=== PATIENT | female | born 1945 | race Caucasian/White ===

== ENCOUNTER 2023-06-20 09:12 | Observation (INO) | payer MEDICARE, BC, OTHER ==
--- NOTE | 2023-06-20 10:09 | ED ---
General Adult HPI - General Chief complaint: Recheck/Abnormal Lab/Rx Stated complaint: Abd Pain Time Seen by Provider: 06/20/23 09:25 Source: patient, RN notes reviewed, old records reviewed Mode of arrival: ambulatory Limitations: no limitations - History of Present Illness Initial comments: This is a 78-year-old female who presents emergency Department stating that she came to the emergency department at [place] for nausea vomiting diarrhea and a rash in her groin. Patient while at [place] was seen by the emergency room physician they did a CAT scan and they noticed that the abdominal aorta was either occluded or near occluded however there was some reconstitution below the occlusion and according to the ER doc in the patient had good cap refill and warm legs. Patient did state that she was having some pain in her legs occasionally if she was walking around a lot and it seems to be getting worse slowly. According to your doctor lactic acid was normal there however when the patient arrived and noted blood work that the lactic acid was elevated at 4.4. Patient currently states she feels considerably better is not complaining of any leg pain patient denies any abdominal pain but she states that her groin or the rash is is still quite sore. - Related Data Allergies Allergy/AdvReac Type Severity Reaction Status Date / Time No Known Allergies Allergy Verified 06/20/23 09:24 Review of Systems ROS Statement: Those systems with pertinent positive or pertinent negative responses have been documented in the HPI. ROS Other: All systems not noted in ROS Statement are negative. Past Medical History Past Medical History: Coronary Artery Disease (CAD), Hyperlipidemia, Hypertension Additional Past Medical History / Comment(s): Colon Polyps, Hypomagnesemia, Uterine CA, PVD History of Any Multi-Drug Resistant Organisms: None Reported Past Surgical History: No Surgical Hx Reported Past Psychological History: Anxiety Smoking Status: Never smoker Past Alcohol Use History: None Reported Past Drug Use History: None Reported General Exam - General Exam Comments Initial Comments: GENERAL: Patient is well-developed and well-nourished. Patient is nontoxic and well- hydrated and is in mild distress. ENT: Neck is soft and supple. No significant lymphadenopathy is noted. Oropharynx is clear. Moist mucous membranes. Neck has full range of motion without eliciting any pain. EYES: The sclera were anicteric and conjunctiva were pink and moist. Extraocular movements were intact and pupils were equal round and reactive to light. E yelids were unremarkable. PULMONARY: Unlabored respirations. Good breath sounds bilaterally. No audible rales rhonchi or wheezing was noted. CARDIOVASCULAR: There is a regular rate and rhythm without any murmurs gallops or rubs. ABDOMEN: Soft and nontender with normal bowel sounds. Patient has intertrigo more so on the left than the right and there is an open wound does not appear to be grossly infected. SKIN: Skin is clear with no lesions or rashes and otherwise unremarkable. NEUROLOGIC: Patient is alert and oriented x3. Cranial nerves II through XII are grossly intact. Motor and sensory are also intact. Normal speech, volume and content. Symmetrical smile. MUSCULOSKELETAL: Normal extremities with adequate strength and full range of motion. No lower extremity swelling or edema. No calf tenderness. I cannot feel any DP pulses however patient has good cap refill in both feet are warm LYMPHATICS: No significant lymphadenopathy is noted PSYCHIATRIC: Normal psychiatric evaluation. Limitations: no limitations Course Vital Signs 06/20/23 09:19 Temperature 99.4 F Pulse Rate 81 Respiratory 20 Rate Blood Pressure 130/58 O2 Sat by Pulse 98 Oximetry Medical Decision Making - Medical Decision Making EKG is interpreted by myself. EKG shows sinus rhythm at 75 bpm MO interval 243 QRS 99 QT intervals 46 QTC is 435 per patient's EKG shows no ST segment elevation or depression. Was pt. sent in by a medical professional or institution (, [facility], PROFESSIONAL ARCHITECT, urgent care, hospital, or usp...) When possible be specific @ -Patient was sent to us from [facility] Did you speak to anyone other than the patient for history (EMS, parent, family, police, friend...)? What history was obtained from this source @ -I spoke with the ER doctor at [facility] and he gave me the history on this patient Did you review nursing and triage notes (agree or disagree)? Why? @ -I reviewed and agree with nursing and triage notes Were old charts reviewed (outside hosp., previous admission, EMS record, old EKG, old radiological studies, urgent care reports/EKG's, usp records)? Report findings @ -I reviewed prior Charts prior and lab work and prior radiological studies in this patient Differential Diagnosis (chest pain, altered mental status, abdominal pain women, abdominal pain men, vaginal bleeding, weakness, fever, dyspnea, syncope, headache, dizziness, GI bleed, back pain, seizure, CVA, palpatations, mental health, musculoskeletal)? @ -Differential Abdominal Pain Women: Appendicitis, Cholecystitis, diverticulosis, ischemic bowel, pancreatitis, hepatitis, UTI, gastroenteritis, AAA, incarcerated hernia, bowel obstruction, constipation, inflammatory bowel, hepatitis, peptic ulcer disease, splenic infarction, perforated viscus, vulvitis, ovarian torsion, PID, kidney stone, placenta abruption, this is not meant to be an all-inclusive list EKG interpreted by me (3pts min.). @ -As above X-rays interpreted by me (1pt min.). @ -None done CT interpreted by me (1pt min.). @ -None done U/S interpreted by me (1pt. min.). @ -None done What testing was considered but not performed or refused? (CT, X-rays, U/S, labs)? Why? @ -None What meds were considered but not given or refused? Why? @ -None Did you discuss the management of the patient with other professionals (professionals i.e. , PA, PROFESSIONAL ARCHITECT, lab, RT, psych nurse, social science research assistant, book packer, teacher, cavalry officer, grievance manager)? Give summary @ -I spoke with from [facility] and he agreed with the patient admitted the patient wrote admitting orders Was smoking cessation discussed for >3mins.? @ -No Was critical care preformed (if so, how long)? @ -No Were there social determinants of health that impacted care today? How? (Homelessness, low income, unemployed, alcoholism, drug addiction, transportation, low edu. Level, literacy, decrease access to med. care, halfway, rehab)? @ -No Was there de-escalation of care discussed even if they declined (Discuss DNR or withdrawal of care, Hospice)? DNR status @ -No What co-morbidities impacted this encounter? (DM, HTN, Smoking, COPD, CAD, Cancer, CVA, ARF, Chemo, Hep., AIDS, mental health diagnosis, sleep apnea, morbid obesity)? @ -None Was patient admitted / discharged? Hospital course, mention meds given and route, prescriptions, significant lab abnormalities, going to OR and other pertinent info. @ -Patient was given some IV fluids and a repeat lactic acid was done I spoke with some physicians they will be admitting the patient. I consulted asked the surgery. Undiagnosed new problem with uncertain prognosis? @ -No Drug Therapy requiring intensive monitoring for toxicity (Heparin, Nitro, Insulin, Cardizem)? @ -No Were any procedures done? @ -No Diagnosis/symptom? @ -Abdominal aortic occlusion Acute, or Chronic, or Acute on Chronic? @ -Chronic Uncomplicated (without systemic symptoms) or Complicated (systemic symptoms)? @ -Complicated Side effects of treatment? @ -No Exacerbation, Progression, or Severe Exacerbation? @ -No Poses a threat to life or bodily function? How? (Chest pain, [place], [place], pneumonia, PE, COPD, DKA, ARF, appy, cholecystitis, CVA, Diverticulitis, Homicidal, Suicidal, threat to staff... and all critical care pts) @ -Yes this could lead to poor perfusion and end organ dysfunction Diagnosis/symptom? @ -Intertrigo Acute, or Chronic, or Acute on Chronic? @ -Acute Uncomplicated (without systemic symptoms) or Complicated (systemic symptoms)? @ -Complicated Side effects of treatment? @ -none Exacerbation, Progression, or Severe Exacerbation] @ -no Poses a threat to life or bodily function? @ -no Diagnosis/symptom? @ -Gastroenteritis Acute, or Chronic, or Acute on Chronic? @ -Acute Uncomplicated (without systemic symptoms) or Complicated (systemic symptoms)? @ -Complicated Side effects of treatment? @ -none Exacerbation, Progression, or Severe Exacerbation] @ -no Poses a threat to life or bodily function? @ -no Disposition Clinical Impression: Aortic occlusion, Gastroenteritis, Intertrigo Disposition: ADMITTED IP TO THIS HOSP Referrals: Jonah Marquez MD [Primary Care Provider] - 1-2 days Time of Disposition: 10:11
[2023-06-20] MEDS ORDERED: SODIUM CHLORIDE 0.9% 1,000 ML IV ONE (10:12)
--- NOTE | 2023-06-20 16:32 | P.GSCN ---
History of Present Illness Consult date: 06/20/23 Reason for Consult: Aortic occlusion History of present illness: 78-year-old female with history of peripheral arterial disease, patient states she previously had some intervention years ago by a vascular surgeon [place] but has not been seen since that time. She originally presented to the emergency department secondary to nausea and vomiting as well as diarrhea. During her workup at [facility] she had a computed tomography scan which demonstrated abdominal aortic occlusion with reconstitution and collateralization to the femoral arteries. She was then transferred to [facility] for continued care. She states she is having some issues with ambulation and states unable to walk farther than 50 feet without any significant pain in her legs. He is also started to experience pain at night as well in her feet. She denies any fevers, chills, chest pain or shortness of breath. Review of Systems All systems: negative (What is mentioned in the HPI or past medical history) Past Medical History Past Medical History: Coronary Artery Disease (CAD), Hyperlipidemia, Hypertension Additional Past Medical History / Comment(s): Colon Polyps, Hypomagnesemia, Uterine CA, PVD History of Any Multi-Drug Resistant Organisms: None Reported Past Surgical History: No Surgical Hx Reported Past Psychological History: Anxiety Smoking Status: Never smoker Past Alcohol Use History: None Reported Past Drug Use History: None Reported Medications and Allergies Home Medications Medication Instructions Recorded Confirmed Type Acetaminophen [Tylenol] 650 mg PO Q4H PRN 06/20/23 06/20/23 History Atorvastatin [Lipitor] 80 mg PO DAILY 06/20/23 06/20/23 History Clotrimazole Cream [Lotrimin Cream] 1 applic TOPICAL BID 06/20/23 06/20/23 History Fluconazole [Diflucan] See Taper PO DAILY 06/20/23 06/20/23 History HYDROcodone/APAP 7.5-325MG [[place] 1 tab PO Q8H PRN 06/20/23 06/20/23 History 7.5-325] Metoprolol Succinate (ER) [Toprol 50 mg PO BID 06/20/23 06/20/23 History Xl] Sulfamethox-Tmp 800-160Mg [Bactrim 1 tab PO BID 06/20/23 06/20/23 History DS 800-160 mg] amLODIPine [Norvasc] 10 mg PO DAILY 06/20/23 06/20/23 History hydroCHLOROthiazide 12.5 mg PO DAILY 06/20/23 06/20/23 History Allergies Allergy/AdvReac Type Severity Reaction Status Date / Time No Known Allergies Allergy Verified 06/20/23 13:17 Surgical - Exam Vital Signs Temp Pulse Resp BP Pulse Ox 99.4 F 81 20 130/58 98 06/20/23 09:19 06/20/23 09:19 06/20/23 09:19 06/20/23 09:19 06/20/23 09:19 Patient Seen Date: 06/20/23 Patient Seen Time: 16:00 - General well developed, moderate pain, chronically ill, obese - Eyes PERRL, normal ocular movement - ENT normal pinna, normal nares - Neck no masses, no bruits - Respiratory normal expansion, normal respiratory effort - Cardiovascular Rhythm: regular - Abdomen Abdomen: soft, non tender Hernia: none - Integumentary Multiple abscesses/pustules noted in the left groin and lower abdomen with purulent drainage noted. Positive tenderness to palpation. Surrounding erythema noted. - Psychiatric oriented to time, oriented to person, oriented to place, speech is normal Nonpalpable femoral, popliteal, PT or DP pulses bilaterally Feet are warm. Good capillary refill. 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 She states she has been dealing with this pain and discomfort for several years as well as had a previous procedure so years ago for revascularization. We will obtain lower extremity arterial Doppler with ABIs to determine severity of her blood flow. We will also instruct a distally made from [facility] in order to visualize the CTA. Thank you for the consultation.
[2023-06-20] MEDS ORDERED: ONDANSETRON 4 MG/2 ML VIAL IVP PRN (16:38)
--- NOTE | 2023-06-20 16:43 | P.HPIM ---
History of Present Illness H&P Date: 06/20/23 Patient is a 78-year-old female with history of hypertension, dyslipidemia presenting with nausea and vomiting. Her symptoms started yesterday, she had multiple bouts of emesis, nonbilious, nonbloody, also multiple bouts of diarrhea. She denies any sick contacts, fevers, chills, travel history. She denies any significant chest pain or shortness of breath. She has been having intertrigo for about 2 weeks, and presented to her PCP, and was prescribed oral fluconazole, oral Bactrim as well as antifungal cream. She claims that her rash is slightly improved. He still has significant burning in that area. She currently lives with her son, ambulates with a walker. She has a history of multiple back surgeries with multiple vertebral fractures, and has bilateral lower extremity radiculopathy. Denies any smoking, alcohol use, or illicit drug use. She is a former smoker. She initially presented at outside hospital. At outside hospital, her white count was 10.3, bicarb 14, creatinine 0.8, lactate 4.4. CT abdomen and pelvis showed occlusion or near occlusion of infra renal abdominal aorta with distal reconstitution, as well as signs of colitis. In our ED, temperature was 99.4, pulse 81, respiratory rate 20, blood pressure 130/58, saturating at 98% on 2 L. Lactic acid 1. EKG independently interpreted normal sinus rhythm. Patient admitted for further workup and vascular surgery consult. Pertinent positives and negatives as discussed in HPI, a complete review of systems was performed and all other systems are negative. Patient seen and examined at bedside. Vital signs reviewed General: nontoxic, no distress, appears at stated age, frail appearing Derm: warm, dry, abdominal and inguinal intertrigo with stage II ulcerations with slight purulent discharge Head: atraumatic, normocephalic, symmetric Eyes: EOMI, no lid lag, anicteric sclera, pupils equal round reactive to light ENT: Nose and ears atraumatic Neck: No thyromegaly, supple Mouth: no lip lesion, mucus membranes moist Cardiovascular: S1S2 reg, no murmur, no edema Lungs: clear to auscultation bilateral, no rhonchi, no rales, no wheeze, no accessory muscle use Abdominal: soft, nontender to palpation, no guarding, no appreciable organomegaly Ext: no gross muscle atrophy, muscle strength muscle strength 5 out of 5 in all 4 extremities, no contractures Neuro: CN II-XII grossly intact Psych: Alert, oriented, appropriate affect Assessment/Plan: Active: Aortic Conclusion, likely chronic -Vascular surgery consulted -Based on CT, patient has distal reconstitution -No need for anticoagulation at the moment -Start patient on aspirin 81 mg -Continue atorvastatin 80 mg Colitis Gastroenteritis, likely viral -Supportive care -Lactate has improved -Repeat CBC and BMP tomorrow -Zofran 4 mg IV every 6 hours as needed for nausea Intertrigo Cellulitis, likely bacterial -Started on IV cefazolin 2 g every 8 hours -Started on nystatin powder -Wound care consult Hypertension - amlodipine 10 mg, metoprolol 50 mg twice a day Dyslipidemia - atorvastatin 80 mg daily Resolved: Lactic acidosis Chronic: The patient is admitted with an anticipated less than 2 midnight stay as observation status for evaluation of abdominal pain. Surrogate decision-maker: Daughter CODE STATUS: Full code DVT prophylaxis: Lovenox Anticipated discharge date: Pending clinical course Anticipated discharge place: Pending clinical course A total of 55 minutes was spent on the care of this complex patient more than 50% of the time was spent in counseling and care coordination. Past Medical History Past Medical History: Coronary Artery Disease (CAD), Hyperlipidemia, Hypertension Additional Past Medical History / Comment(s): Colon Polyps, Hypomagnesemia, Uterine CA, PVD History of Any Multi-Drug Resistant Organisms: None Reported Past Surgical History: No Surgical Hx Reported Past Psychological History: Anxiety Smoking Status: Never smoker Past Alcohol Use History: None Reported Past Drug Use History: None Reported Medications and Allergies Home Medications Medication Instructions Recorded Confirmed Type Acetaminophen [Tylenol] 650 mg PO Q4H PRN 06/20/23 06/20/23 History Atorvastatin [Lipitor] 80 mg PO DAILY 06/20/23 06/20/23 History Clotrimazole Cream [Lotrimin Cream] 1 applic TOPICAL BID 06/20/23 06/20/23 History Fluconazole [Diflucan] See Taper PO DAILY 06/20/23 06/20/23 History HYDROcodone/APAP 7.5-325MG [[place] 1 tab PO Q8H PRN 06/20/23 06/20/23 History 7.5-325] Metoprolol Succinate (ER) [Toprol 50 mg PO BID 06/20/23 06/20/23 History Xl] Sulfamethox-Tmp 800-160Mg [Bactrim 1 tab PO BID 06/20/23 06/20/23 History DS 800-160 mg] amLODIPine [Norvasc] 10 mg PO DAILY 06/20/23 06/20/23 History hydroCHLOROthiazide 12.5 mg PO DAILY 06/20/23 06/20/23 History Allergies Allergy/AdvReac Type Severity Reaction Status Date / Time No Known Allergies Allergy Verified 06/20/23 13:17 Physical Exam Vitals: Vital Signs Temp Pulse Resp BP Pulse Ox 06/20/23 09:19 99.4 F 81 20 130/58 98 Intake and Output 06/20/23 06/20/23 06/20/23 06:59 14:59 22:59 Other: Weight 63.049 kg
[2023-06-20] MEDS: NYSTATIN 100,000 UNIT/GM POWD 15 GM TOPICAL SCH ×2 (18:59→23:33)
[2023-06-20] MEDS: METOPROLOL SUCCINATE (ER) 50 MG TAB.ER.24H PO SCH (20:29)
[2023-06-21] MEDS: HYDROcodone/APAP 7.5-325MG 1 EACH TAB PO PRN ×4 (00:54→23:40)
[2023-06-21] MEDS: NYSTATIN 100,000 UNIT/GM POWD 15 GM TOPICAL SCH ×3 (07:49→21:34)
[2023-06-21 08:12] LABS: Basophils % (A) 1 %; Eosinophils # (A) 0.2 k/uL (0-0.7); Eosinophils % (A) 3 %; HCT 38.2 % (34.0-46.0); HGB 12.9 gm/dL (11.4-16.0); Lymphocytes # (A) 1.9 k/uL (1.0-4.8); Lymphocytes % (A) 30 %; MCH 29.7 pg (25.0-35.0); MCHC 33.7 g/dL (31.0-37.0); MCV 88.1 fL (80.0-100.0); Mean Platelet Volume 8.7; Monocytes # (A) 0.5 k/uL (0-1.0); Monocytes % (A) 8 %; Neutrophils # (A) 3.5 k/uL (1.3-7.7); Neutrophils % (A) 56 %; Platelet Count 267 k/uL (150-450); RBC 4.33 m/uL (3.80-5.40); RDW 15.7 % (11.5-15.5); WBC 6.3 k/uL (3.8-10.6)
[2023-06-21 08:22] LABS: African American GFR (CKD) >90 (>60 ml/min/1.73 sqM); Anion Gap 11 mmol/L; Blood Urea Nitrogen 9 mg/dL (7-17); Calcium 9.1 mg/dL (8.4-10.2); Carbon Dioxide 21 mmol/L (22-30); Chloride 109 mmol/L (98-107); Glucose 85 mg/dL (74-99); Non-African American GFR(CKD) 88 (>60 ml/min/1.73 sqM); Potassium 3.6 mmol/L (3.5-5.1); Sodium 141 mmol/L (137-145)
[2023-06-21] MEDS: hydroCHLOROthiazide 12.5 MG CAP PO SCH ×2 (08:30→08:31)
[2023-06-21] MEDS: ATORVASTATIN 80 MG TAB PO SCH (08:31)
[2023-06-21] MEDS: METOPROLOL SUCCINATE (ER) 50 MG TAB.ER.24H PO SCH ×2 (08:31→21:34)
[2023-06-21] MEDS: ASPIRIN 81 MG PO SCH (08:31)
[2023-06-21] MEDS: amLODIPine 10 MG TAB PO SCH (08:31)
[2023-06-21] MEDS: ENOXAPARIN 40 MG/0.4 ML SYRINGE SQ SCH (08:31)
[2023-06-21] MEDS: NYSTATIN 100,000UNIT/GM CREAM 30 GM TUBE TOPICAL SCH ×3 (08:31→21:34)
--- NOTE | 2023-06-21 13:38 | P.PN ---
Subjective Progress Note Date: 06/21/23 Hospital Course: 78-year-old female with history of hypertension, dyslipidemia presenting with nausea and vomiting. At outside hospital, her white count was 10.3, bicarb 14, creatinine 0.8, lactate 4.4. CT abdomen and pelvis showed occlusion or near occlusion of infrarenal abdominal aorta with distal reconstitution, as well as signs of colitis. In our ED, temperature was 99.4, pulse 81, respiratory rate 20, blood pressure 130/58, saturating at 98% on 2 L. Lactic acid 1. EKG inde pendently interpreted normal sinus rhythm. Patient admitted for further workup and vascular surgery consult. Patient being treated for cellulitis and intertrigo. Vascular surgery recommending treatment of cellulitis prior to any further interventions. Subjective: Patient seen and examined at bedside. No acute events overnight. Abdominal rash is improving. No bowel movements or nausea or vomiting. Pertinent positives and negatives as discussed above, a complete review of systems was performed and all other systems are negative. Vitals Signs Reviewed. General: nontoxic, no distress, appears at stated age, frail appearing Derm: warm, dry, abdominal and inguinal intertrigo with stage II ulcerations with slight purulent discharge Head: atraumatic, normocephalic, symmetric Eyes: EOMI, no lid lag, anicteric sclera, pupils equal round reactive to light ENT: Nose and ears atraumatic Neck: No thyromegaly, supple Mouth: no lip lesion, mucus membranes moist Cardiovascular: S1S2 reg, no murmur, no edema Lungs: clear to auscultation bilateral, no rhonchi, no rales, no wheeze, no acc essory muscle use Abdominal: soft, nontender to palpation, no guarding, no appreciable organomegaly Ext: no gross muscle atrophy, muscle strength muscle strength 5 out of 5 in all 4 extremities, no contractures Neuro: CN II-XII grossly intact Psych: Alert, oriented, appropriate affect Data Reviewed Today: Pertinent Labs: Hemoglobin 12.9, WBC 6.3, bicarb 21, creatinine 0.6 Imaging: No new imaging Assessment and Plan: Active: Intertrigo Cellulitis, likely bacterial -Continue IV cefazolin 2 g every 8 hours -Continue nystatin powder -Wound care consult Aortic occlusion, likely chronic -Vascular surgery no immediate surgical intervention -Based on CT, patient has distal reconstitution -On aspirin 81 mg -Continue atorvastatin 80 mg Colitis, resolving Gastroenteritis, likely viral, resolved -Zofran 4 mg IV every 6 hours as needed for nausea Hypertension - amlodipine 10 mg, metoprolol 50 mg twice a day Dyslipidemia - atorvastatin 80 mg daily Resolved: Lactic acidosis Chronic: DVT ppx: Lovenox Code status: Full code Anticipated discharge place: Home Anticipated discharge time: Likely tomorrow Objective - Vital Signs Vital signs: Vital Signs Temp 97.6 F 06/21/23 08:18 Pulse 58 L 06/21/23 11:15 Resp 16 06/21/23 11:15 BP 168/68 06/21/23 11:15 Pulse Ox 96 06/21/23 11:15 FiO2 Intake & Output 06/20/23 06/21/23 06/21/23 18:59 06:59 18:59 Intake Total 290 Balance 290 Weight 63.049 kg 63.049 kg Intake: Intake, IV Titration 50 Amount ceFAZolin 2 gm In Sodium 50 Chloride 0.9% 50 ml @ 100 mls/hr IVPB Q8HR [facility] Rx# :[id number] Oral 240 Other: Voiding Method Bedside Commode Bedside Commode # Voids 1 - Labs CBC & Chem 7: 06/21/23 07:22 06/21/23 07:22 Labs: Abnormal Lab Results - Last 24 Hours (Table) 06/21/23 06/21/23 Range/Units 07:22 07:22 RDW 15.7 H (11.5-15.5) % Chloride 109 H (98-107) mmol/L Carbon Dioxide 21 L (22-30) mmol/L
[2023-06-22] MEDS: METOPROLOL SUCCINATE (ER) 50 MG TAB.ER.24H PO SCH (08:46)
[2023-06-22] MEDS: hydroCHLOROthiazide 12.5 MG CAP PO SCH (08:46)
[2023-06-22] MEDS: ENOXAPARIN 40 MG/0.4 ML SYRINGE SQ SCH (08:46)
[2023-06-22] MEDS: amLODIPine 10 MG TAB PO SCH (08:46)
[2023-06-22] MEDS: ASPIRIN 81 MG PO SCH (08:46)
[2023-06-22] MEDS: ATORVASTATIN 80 MG TAB PO SCH (08:46)
[2023-06-22] MEDS: NYSTATIN 100,000UNIT/GM CREAM 30 GM TUBE TOPICAL SCH (08:47)
[2023-06-22] MEDS: NYSTATIN 100,000 UNIT/GM POWD 15 GM TOPICAL SCH ×2 (08:47→18:52)
[2023-06-22] MEDS: HYDROcodone/APAP 7.5-325MG 1 EACH TAB PO PRN ×2 (09:03→18:51)
[2023-06-22 10:50] LABS: African American GFR (CKD) 77 (>60 ml/min/1.73 sqM); Anion Gap 14 mmol/L; Blood Urea Nitrogen 14 mg/dL (7-17); Calcium 9.6 mg/dL (8.4-10.2); Carbon Dioxide 20 mmol/L (22-30); Chloride 108 mmol/L (98-107); Glucose 93 mg/dL (74-99); Non-African American GFR(CKD) 67 (>60 ml/min/1.73 sqM); Potassium 3.7 mmol/L (3.5-5.1); Sodium 142 mmol/L (137-145)
--- NOTE | 2023-06-22 11:08 | P.PN ---
Subjective Progress Note Date: 06/22/23 Principal diagnosis: Aortoiliac occlusion Was seen and examined sitting up in her bed resting comfortably. She is without any complaints today. She states that she has chronic lower extremity discomfort and difficulty to walk but that this has been ongoing. No acute changes through the night. Objective - Vital Signs Vital signs: Vital Signs Temp 97.8 F 06/22/23 04:00 Pulse 60 06/22/23 04:00 Resp 17 06/22/23 04:00 BP 149/65 06/22/23 04:00 Pulse Ox 96 06/22/23 04:00 FiO2 Intake & Output 06/21/23 06/22/23 06/22/23 18:59 06:59 18:59 Intake Total 755 Balance 755 Intake: Intake, IV Titration 50 Amount ceFAZolin 2 gm In Sodium 50 Chloride 0.9% 50 ml @ 100 mls/hr IVPB Q8HR [facility] Rx# :[id number] Oral 705 Other: Voiding Method Toilet Toilet # Voids 1 - Exam General appearance: The patient is alert, oriented, appears in no acute distress. HET: Head is normocephalic and atraumatic. Neck: Supple. Heart: Regular. Lungs: Equal expansion, normal respiratory effort. Abdomen: Soft, nondistended. Extremities: Normal skin color and turgor. Non-palpable Palpable DP pulses. Good capillary refill. No tenderness to palpation of Bilaterally. Neurological: No focal deficits. - Labs CBC & Chem 7: 06/21/23 07:22 06/21/23 07:22 Assessment and Plan Assessment: 1. 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 Left groin/lower abdomen abscess, infection 3. Claudication Josefina classification for with rest pain 4. Morbid obesity 5. Coronary artery disease Plan: Lower extremity arterial ultrasound ordered. Please obtain disc from [facility] of abdominal/pelvis CTA. There is no emergent surgical intervention required at this time due to the fact obstruction is likely chronic in nature. Patient can follow-up with vascular surgery in 1-2 weeks. Patient given business card and agreeable to plan. Thank you for this consultation. The impression and plan of care has been dictated as directed. I performed a history and examination of this patient, discussed the same with the dictator. I agree with the dictator's note ,documented as a scribe. Any additional findings or plans will be noted.
--- NOTE | 2023-06-22 11:32 | P.PN ---
Subjective Progress Note Date: 06/22/23 Hospital course: Patient is a very pleasant 78-year-old female with a past medical history of coronary artery disease, hypertension and hyperlipidemia. She presented to the hospital on 06/20/23 as a transfer from [facility] where she initially presented with a chief complaint of nausea, vomiting, diarrhea, and a rash in her groin. She underwent full evaluation at this facility and underwent a CT abdomen and pelvis which was reportedly concerning for an aorto iliac occlusion with reports of distal reconstitution as well as colitis and she was transferred to our facility for evaluation. Patient underwent evaluation by vascular surgeon for her aorto iliac occlusion which was reported to be chronic and vascular surgery stating no emergent surgical intervention required at this time. Patient remains hospitalized and being treated for coloitis and left groin/lower abdominal abscess with cellulitis. Physical exam: Vital signs reviewed and stable. General: Nontoxic, no distress and appears stated age. Derm: Skin warm and dry, normal coloration for ethnicity. Head: Atraumatic, normocephalic and symmetric. Eyes: EOMs intact, no lid lag, and anicteric sclera Mouth: no lip lesions, mucus membranes moist Cardiovascular: regular rate and rhythm with normal S1S2, no murmur, positive posterior tibial pulses bilaterally, and cap refill < 2 seconds. Lungs: Respirations even, regular, and unlabored on room air. Lungs CTA bilaterally, no rhonchi, no rales, no wheezing, and no accessory muscle usage. Abdominal: soft, nontender to palpation, no guarding, no appreciable organomegaly. Patient with extensive excoriation beneath abdominal pannus with open wounds surrounding erythema Ext: ROM intact. No gross muscle atrophy, no edema, no contractures Neuro: Speech clear, face symmetrical and CN II-XII grossly intact with no noted focal neuro deficits Psych: Alert and oriented to person, place, time, and situation. Appropriate and pleasant affect. Assessment and Plan of Care: Intertrigo Cellulitis to abdominal pannus, likely bacterial -Keflex 500 mg by mouth every 6 hours -Continue nystatin cream 3 times daily along with nystatin powder -Wound care consulted Aorto iliac occlusion, likely chronic -Vascular surgery evaluated stating no immediate surgical intervention needed at this time and placed order for lower extremity arterial Doppler -Based on CT, patient has distal reconstitution -On aspirin 81 mg -Continue atorvastatin 80 mg Colitis, resolving Gastroenteritis, likely viral, resolved -Continue symptomatic care with Zofran 4 mg IV every 6 hours as needed for nausea and/or vomiting Hypertension -Continue medication regimen with amlodipine 10 mg daily and metoprolol 50 mg twice a day Dyslipidemia -Continue home medication regimen with atorvastatin 80 mg daily Lactic acidosis, resolved. Data and imaging reviewed: Morning labs completed and reviewed. BMP revealing mild metabolic acidosis with hyperchloremia with chloride of 108, hypocarbia with bicarb of 20 and elevated anion gap of 14. Vital signs reviewed. Blood pressure 149/65, heart rate 60, respiratory rate 17, temp 97.8F, SpO2 of 96% on room air. DVT ppx: Lovenox Code status: Full code Anticipated discharge place: Home Anticipated discharge time: Likely tomorrow Patient was seen independently by Nurse Pracitioner. This document was prepared using [employer] dictation software. Please allow for errors in physician relations manager, while rare they do occur. Objective - Vital Signs Vital signs: Vital Signs Temp 97.8 F 06/22/23 04:00 Pulse 60 06/22/23 04:00 Resp 17 06/22/23 04:00 BP 149/65 06/22/23 04:00 Pulse Ox 96 06/22/23 04:00 FiO2 Intake & Output 06/21/23 06/22/23 06/22/23 18:59 06:59 18:59 Intake Total 755 Balance 755 Intake: Intake, IV Titration 50 Amount ceFAZolin 2 gm In Sodium 50 Chloride 0.9% 50 ml @ 100 mls/hr IVPB Q8HR [facility] Rx# :[id number] Oral 705 Other: Voiding Method Toilet Toilet # Voids 1 - Labs CBC & Chem 7: 06/21/23 07:22 06/22/23 08:44 Labs: Abnormal Lab Results - Last 24 Hours (Table) 06/21/23 06/21/23 Range/Units 07:22 07:22 RDW 15.7 H (11.5-15.5) % Chloride 109 H (98-107) mmol/L Carbon Dioxide 21 L (22-30) mmol/L
[2023-06-22 12:43] VITALS: BP 124/55; PULSE 50; RESP 16; TEMP 97.8
[2023-06-22] MEDS ORDERED: CEPHALEXIN 500 MG CAP PO SCH ×2 (13:00→17:00)
--- NOTE | 2023-06-22 13:30 | US ---
EXAMINATION TYPE: US arterial LE multi level DATE OF EXAM: 06/22/2023 1:01 PM CLINICAL INDICATION: Female, 78 years old with history of Aortoiliac occlusion; h/o extensive aorta o cclusion infrarenal, cold feet that are very restless, she states that is normal for her History of: Smoker: previous Hypertension: y Diabetic: n Hyperlipidemia: y TIA/CVA: n Previous Vascular Surgery: heart stents CAD: n MD: n Vascular Ulcers: n Claudication: y Gangrene: n Doppler Waveforms: Right: Monophasic Left: Monophasic Right Brachial Pressure: 152 Left Brachial Pressure: 156 Ankle-Brachial Indices: Right: 0.4 Left: 0.3 Toe Brachial Indices: Right: 0.1 Left: 0.1 IMPRESSION: 1. Severe to critical stenosis bilateral lower extremities throughout the extremities from the femora l arteries to the dorsalis pedis and posterior tibial levels. Digital waveforms were not obtained.
--- NOTE | 2023-06-22 18:10 | P.DS ---
Providers Date of admission: 06/20/23 10:14 Expected date of discharge: 06/22/23 Attending physician: Nicanor Kimbrough MD Consults: 06/20/23 10:12 Consult Physician Urgent Consulting Provider: Edi Terrell Consult Reason/Comments: Occluded aorta Do you want consulting provider notified?: Yes Primary care physician: [facility] Hospital Course: Discharge Diagnosis: Intertrigo Cellulitis to abdominal pannus, likely bacterial Aorto iliac occlusion, believed to be chronic in nature. Arterial ultrasound of bilateral lower extremities was completed showing severe to critical stenosis bilateral lower extremities throughout the extremities from the femoral arteries to the dorsalis pedis and posterior tibial pulses. Discussed with vascular surgery and state patient to be discharged and follow up in our office in 1 week. Patient started on aspirin 81 mg daily in addition to atorvastatin 80 mg daily. Colitis, resolved. Gastroenteritis, likely viral, resolved. Hypertension. Continue medication regimen with amlodipine 10 mg daily and metoprolol 50 mg twice a day Dyslipidemia. Continue home medication regimen with atorvastatin 80 mg daily Lactic acidosis, resolved. Hospital Course: Patient is a very pleasant 78-year-old female with a past medical history of coronary artery disease, hypertension and hyperlipidemia. She presented to the hospital on 06/20/23 as a transfer from [facility] where she initially presented with a chief complaint of nausea, vomiting, diarrhea, and a rash in her groin. She underwent full evaluation at this facility and underwent a CT abdomen and pelvis which was reportedly concerning for an aorto iliac occlusion with reports of distal reconstitution as well as colitis and she was transferred to our facility for evaluation. Patient underwent evaluation by vascular surgeon for her aorto iliac occlusion which was reported to be chronic and vascular surgery stating no emergent surgical intervention required at this time. Patient remains hospitalized and being treated for coloitis and left groin/lower abdominal abscess with cellulitis. Patient received 5 day course of IV antibiotics and secondary to tentatively planned vascular surgery procedure patient being discharged home on Keflex 500 mg 3 times daily for an additional 10 days along with nystatin cream and powder to be applied to excoriated areas of abdominal pannus 3 times daily. Aorto iliac occlusion, believed to be chronic in nature. Arterial ultrasound of bilateral lower extremities was completed showing severe to critical stenosis bilateral lower extremities throughout the extremities from the femoral arteries to the dorsalis pedis and posterior tibial pulses. Discussed with vascular surgery and state patient to be discharged and follow up in our office in 1 week. Patient started on aspirin 81 mg daily in addition to atorvastatin 80 mg daily. Patient being discharged home with home care. Patient to follow up outpatient with PCP in 1-2 days and with vascular surgery as discussed in 1 week. Physical exam: Vital signs reviewed and stable. General: Nontoxic, no distress and appears stated age. Derm: Skin warm and dry, normal coloration for ethnicity. Head: Atraumatic, normocephalic and symmetric. Eyes: EOMs intact, no lid lag, and anicteric sclera Mouth: no lip lesions, mucus membranes moist Cardiovascular: regular rate and rhythm with normal S1S2, no murmur, positive posterior tibial pulses bilaterally, and cap refill < 2 seconds. Lungs: Respirations even, regular, and unlabored on room air. Lungs CTA bilaterally, no rhonchi, no rales, no wheezing, and no accessory muscle usage. Abdominal: soft, nontender to palpation, no guarding, no appreciable organomegaly. Patient with extensive excoriation beneath abdominal pannus with open wounds surrounding erythema Ext: ROM intact. No gross muscle atrophy, no edema, no contractures Neuro: Speech clear, face symmetrical and CN II-XII grossly intact with no noted focal neuro deficits Psych: Alert and oriented to person, place, time, and situation. Appropriate and pleasant affect. A total of 35 minutes of time were spent preparing this complex discharge summary. Pt was discharged on 06/22/23 at 6:05 PM. Patient was seen independently by Nurse Practitioner. This document was prepared using [employer] dictation software. Please allow for errors in rolls baker while rare they do occur. Patient Condition at Discharge: Stable Plan - Discharge Summary Discharge Rx Participant: No New Discharge Prescriptions: New Aspirin 81 mg PO DAILY 30 Days #30 tab Cephalexin [Keflex] 500 mg PO TID 10 Days #30 cap Nystatin 100,000Unit/gm Cream [Mycostatin Cream] 1 applic TOPICAL TID 10 Days #1 each Nystatin 100,000 Unit/gm Powd [Mycostatin Powder] 1 applic TOPICAL TID 10 Days #1 each Continue hydroCHLOROthiazide 12.5 mg PO DAILY Metoprolol Succinate (ER) [Toprol XL] 50 mg PO BID Acetaminophen [Tylenol] 650 mg PO Q4H PRN PRN Reason: Fever And/ Or Pain Atorvastatin [Lipitor] 80 mg PO DAILY Clotrimazole Cream [Lotrimin Cream] 1 applic TOPICAL BID amLODIPine [Norvasc] 10 mg PO DAILY HYDROcodone/APAP 7.5-325MG [[place] 7.5-325] 1 tab PO Q8H PRN PRN Reason: Pain Discontinued Fluconazole [Diflucan] See Taper PO DAILY Sulfamethox-Tmp 800-160Mg [Bactrim DS 800-160 mg] 1 tab PO BID Discharge Medication List Acetaminophen [Tylenol] 650 mg PO Q4H PRN 06/20/23 [History] Atorvastatin [Lipitor] 80 mg PO DAILY 06/20/23 [History] Clotrimazole Cream [Lotrimin Cream] 1 applic TOPICAL BID 06/20/23 [History] HYDROcodone/APAP 7.5-325MG [[place] 7.5-325] 1 tab PO Q8H PRN 06/20/23 [History] Metoprolol Succinate (ER) [Toprol XL] 50 mg PO BID 06/20/23 [History] amLODIPine [Norvasc] 10 mg PO DAILY 06/20/23 [History] hydroCHLOROthiazide 12.5 mg PO DAILY 06/20/23 [History] Aspirin 81 mg PO DAILY 30 Days #30 tab 06/22/23 [Rx] Cephalexin [Keflex] 500 mg PO TID 10 Days #30 cap 06/22/23 [Rx] Nystatin 100,000 Unit/gm Powd [Mycostatin Powder] 1 applic TOPICAL TID 10 Days #1 each 06/22/23 [Rx] Nystatin 100,000Unit/gm Cream [Mycostatin Cream] 1 applic TOPICAL TID 10 Days #1 each 06/22/23 [Rx] Follow up Appointment(s)/Referral(s): Jonah Marquez MD [Primary Care Provider] - 1-2 days Edi Terrell DO [STAFF PHYSICIAN] - 1 Week Patient Instructions/Handouts: Peripheral Artery Disease (DC) Activity/Diet/Wound Care/Special Instructions: Activity: As tolerated. Take breaks as needed. Diet: Heart healthy and carb consistent diet. Avoid salts, or foods with hidden salts such as canned or boxed foods and frozen dinners. Extra salt makes your heart work harder and traps the fluid in your body for longer. Special Instructions: Take all of your medications as directed and remember to keep all of your doctor's appointments and follow-up as needed. Thank you for allowing us to participate in your care, it was truly a pleasure having you for our patient!!! Discharge Disposition: HOME WITH HOME HEALTH SERVICES
== END 2023-06-22 19:17 | disposition home health service (06) ==
LOC: EC 09:12 → 3SCARD 10:14
PROVIDERS: ADMIT Student in an Organized Health Care Education/Training Program; ATTEND Student in an Organized Health Care Education/Training Program
DX: K52.9 Noninfective gastroenteritis and colitis, unspecified (principal); L30.4 Erythema intertrigo; L02.211 Cutaneous abscess of abdominal wall; I25.10 Atherosclerotic heart disease of native coronary artery without angina pectoris; E78.5 Hyperlipidemia, unspecified; I10 Essential (primary) hypertension; I73.9 Peripheral vascular disease, unspecified; F41.9 Anxiety disorder, unspecified; I74.5 Embolism and thrombosis of iliac artery; E87.20 Acidosis, unspecified; E66.01 Morbid (severe) obesity due to excess calories; Z68.25 Body mass index [BMI] 25.0-25.9, adult; Z85.42 Personal history of malignant neoplasm of other parts of uterus; Z79.82 Long term (current) use of aspirin; Z79.899 Other long term (current) drug therapy
CPT/HCPCS: 96366 ×3; 96372 ×2; 96375; 96365; 99285; 36415; 80048 ×2; 83605; 85025; 93923; G0378 ×3; J0690 ×2; J2405; J1650 ×2